=== PATIENT | female | born 1985 | race Caucasian/White ===

== ENCOUNTER 2018-01-03 06:41 | Emergency (ER) | payer OTHER ==
[~2018-01-03] VITALS: Ht 167.6 cm; Wt 56.7 kg
[2018-01-03] MEDS ORDERED: NORCO 5-325 TA1 EACH PO (07:27)
[2018-01-03] MEDS ORDERED: AMOXICILLIN 50500 MG PO (07:27)
[2018-01-03 07:57] VITALS: BP 123/64
== END 2018-01-03 07:59 | disposition home or self-care (01) ==
LOC: M.ERS 06:41
DX: K04.7 Periapical abscess without sinus (principal)

== ENCOUNTER 2018-01-15 05:46 | Emergency (ER) | payer OTHER ==
[~2018-01-15] VITALS: Ht 167.6 cm; Wt 79.4 kg
[~2018-01-15 05:46] MED LIST: AMOXICILLIN 50500 MG PO; NORCO 5-325 TA1 EACH PO
[2018-01-15 05:53] VITALS: BP 132/83
[2018-01-15] MEDS ORDERED: NORCO 5-325 TA1 EACH PO (06:01)
[2018-01-15] MEDS ORDERED: AMOXICILLIN 50500 MG PO (06:01)
== END 2018-01-15 06:10 | disposition home or self-care (01) ==
LOC: M.ERS 05:46
DX: K04.7 Periapical abscess without sinus (principal)

== ENCOUNTER 2018-06-20 19:27 | Emergency (ER) | payer OTHER ==
[~2018-06-20] VITALS: Ht 167.6 cm; Wt 79.4 kg
[2018-06-20 19:54] LABS: URINE BILIRUBIN NEGATIVE (Negative); URINE BLOOD 1+ (Negative); URINE COLOR YELLOW; URINE GLUCOSE-RANDOM NEGATIVE (Negative); URINE KETONES NEGATIVE (Negative); URINE LEUKOCYTES-REFLEX NEGATIVE (Negative); URINE NITRITE-REFLEX NEGATIVE (Negative); URINE PROTEIN NEGATIVE (Negative); URINE SPECIFIC GRAVITY >= 1.030 (1.005-1.030); URINE UROBILINOGEN 0.2 E.U./dl (0.2-1.0)
[2018-06-20 19:54] LABS: ABSOLUTE BASOPHILS 0.1 thou/uL (0.0-0.2); ABSOLUTE EOSINOPHILS 0.2 thou/uL (0.0-0.7); ABSOLUTE LYMPHOCYTES 2.9 thou/uL (0.8-5.3); ABSOLUTE MONOCYTES 0.5 thou/uL (0.0-1.2); ABSOLUTE NEUTROPHILS 7.7 thou/uL (1.6-8.1); EOSINOPHILS 1.7 %; HEMATOCRIT 35.8 % (37.0-47.0); LYMPHOCYTES 25.2 %; MCH 31.8 pg (26.0-34.0); MCHC 33.4 g/dL (28.0-37.0); MCV 95.2 fL (80.0-100.0); MONOCYTES 4.4 %; MPV 8.3 fl. (7.2-11.1); NUCLEATED RBCS 0 /100WBC; PLATELET COUNT* 285 thou/uL (150-400); POLYS 67.7 %; RBC 3.76 mil/uL (4.20-5.00); RDW-CV 13.8 % (10.5-14.5); WBC 11.4 thou/uL (4.0-11.0)
[2018-06-20 19:55] LABS: URINE CLARITY HAZY
[2018-06-20 20:04] LABS: BACTERIA-REFLEX >30 Many /HPF (None Seen); CASTS None Seen /LPF (None Seen); CRYSTALS None Seen /LPF (None Seen); SQUAMOUS >10 Many /LPF (0-3); URINE RBC 3-10 Few /HPF (0-2); URINE WBC-REFLEX 0-5 Rare /HPF (0-5)
[2018-06-20 20:07] LABS: ALBUMIN 3.4 g/dL (3.4-5.0); CALCIUM 8.2 mg/dL (8.5-10.1); CREATININE 0.9 mg/dL (0.6-1.3); POTASSIUM 3.7 mmol/L (3.5-5.1); TOTAL BILIRUBIN 0.1 mg/dL (<0.1-1.0); TOTAL PROTEIN 6.7 g/dL (6.4-8.2)
[2018-06-20] MEDS ORDERED: NORCO 5-325 TA1 EACH PO (20:59)
[2018-06-20] MEDS ORDERED: ZOFRAN ODT4 MG PO (20:59)
[2018-06-20 21:22] VITALS: BP 102/57
== END 2018-06-20 21:23 | disposition home or self-care (01) ==
LOC: M.ERS 19:27
PROVIDERS: Physician Assistant
DX: R10.32 Left lower quadrant pain (principal); R31.9 Hematuria, unspecified

== ENCOUNTER 2019-02-06 07:14 | Emergency (ER) | payer OTHER ==
[~2019-02-06] VITALS: Ht 167.6 cm; Wt 79.4 kg
[~2019-02-06 07:14] MED LIST changes: +ZOFRAN ODT4 MG PO
[2019-02-06] MEDS ORDERED: PENICILLIN VK500 MG PO (07:31)
[2019-02-06] MEDS ORDERED: NORCO 5-325 TA1 EAC1 PO (07:31)
[2019-02-06 07:41] VITALS: BP 138/80
== END 2019-02-06 07:43 | disposition home or self-care (01) ==
LOC: M.ERS 07:14
DX: K08.89 Other specified disorders of teeth and supporting structures (principal); F17.210 Nicotine dependence, cigarettes, uncomplicated

== ENCOUNTER 2019-09-17 16:45 | Emergency (ER) | payer OTHER ==
[~2019-09-17] VITALS: Ht 167.6 cm; Wt 81.7 kg
[~2019-09-17 16:45] MED LIST changes: +NORCO 5-325 TA1 EAC1 PO; +PENICILLIN VK500 MG PO
[2019-09-17] MEDS ORDERED: DOXYCYCLINE 10100 MG PO (17:33)
[2019-09-17] MEDS ORDERED: NORCO 5-325 TA1 EAC1 PO (17:33)
[2019-09-17 18:09] VITALS: BP 145/79
== END 2019-09-17 18:10 | disposition home or self-care (01) ==
LOC: M.ERS 16:45
DX: N76.4 Abscess of vulva (principal); F17.210 Nicotine dependence, cigarettes, uncomplicated